=== PATIENT | female | born 1995 | race African-American/Black ===

== ENCOUNTER 2016-05-13 18:24 | Emergency (ER) | payer OTHER ==
[~2016-05-13] VITALS: Ht 175.3 cm; Wt 56.8 kg
[~2016-05-13 18:24] MED LIST: ALBU6.7H
[2016-05-13] MEDS ORDERED: IBUP-1547 PO (18:45)
[2016-05-13 19:00] VITALS: BP 137/76
[2016-05-13 19:48] LABS: APPEARANCE,URINE TURBID (CLEAR); GLUCOSE, URINE (UA) NEGATIVE (NEGATIVE); KETONES,URINE TRACE mg/dL (NEGATIVE); LEUKOCYTE ESTERASE ,URINE LARGE (NEGATIVE); OCCULT BLOOD,URINE LARGE (NEGATIVE); PROTEIN,URINE SEE CONFIRM (NEGATIVE)
[2016-05-13 19:49] LABS: ADD UA MICROSCOPIC YES
[2016-05-13 20:37] LABS: SULFOSALICYLIC ACID,URINE 2+ (Negative)
[2016-05-13 20:38] LABS: SQUAMOUS EPITHELIAL CELL,UR Few /LPF (None Seen); WBC,URINE >100 /HPF (0-5)
[2016-05-13] MEDS ORDERED: CEPHALEXIN MONOHYDRATE 500 MG CAPSULE PO ONE (21:30)
[2016-05-13] MEDS ORDERED: PHENAZOPYRIDINE HCL 100 MG TABLET PO ONE (21:30)
== END 2016-05-13 22:01 | disposition home or self-care (01) ==
LOC: EMS 18:25
DX: N39.0 Urinary tract infection, site not specified (principal); J45.909 Unspecified asthma, uncomplicated
CPT/HCPCS: 81025; 87086; 99284